=== PATIENT | male | born 1975 | race Caucasian/White ===

== ENCOUNTER 2018-07-22 08:09 | Inpatient (IN) | payer MEDICAID ==
[~2018-07-22] VITALS: Ht 170.2 cm; Wt 72.1 kg
[2018-07-22 08:43] VITALS: BP 128/76
[2018-07-22] MEDS ORDERED: ZOLPIDEM TARTRATE 10 MG TABLET PO PRN (09:00)
[2018-07-22] MEDS ORDERED: HALOPERIDOL 5 MG TABLET PO PRN (09:00)
[2018-07-22 11:28] VITALS: BP 119/67
[2018-07-22 16:00] VITALS: BP 106/66
[2018-07-23 00:51] VITALS: BP 111/67
[2018-07-23 08:34] LABS: BASOPHILS % (AUTO) 0.7 % (0.0-2.0); EOSINOPHILS % (AUTO) 5.3 % (1.0-6.0); HEMATOCRIT 36.6 % (41-53); HEMOGLOBIN 11.6 g/dL (13.5-17.5); LYMPHOCYTES # (AUTO) 3.4 K/uL (1.0-4.8); LYMPHOCYTES % (AUTO) 26.5 % (22.0-44.0); MEAN CORPUSCULAR HEMOGLOBIN 24.3 pg (26.0-34.0); MEAN CORPUSCULAR HGB CONC 31.7 G/dL (31.0-37.0); MEAN CORPUSCULAR VOLUME 77 fL (80-100); MONOCYTES # (AUTO) 0.9 K/uL (0.1-1.0); NEUTROPHILS # (AUTO) 7.7 K/uL (1.8-7.7); NEUTROPHILS % (AUTO) 60.5 % (40.0-70.0); PLATELET COUNT (AUTO) 389 K/uL (150-450); RED BLOOD CELL COUNT(AUTO) 4.77 MIL/uL (4.50-5.90); RED CELL DISTRIBUTION WIDTH 16.3 % (11.5-14.5)
[2018-07-23 08:45] LABS: HEMOGLOBIN A1C 5.7 % (4.5-6.2)
[2018-07-23 09:04] LABS: ALANINE AMINOTRANSFERASE 27 U/L (12-78); ALBUMIN 3.6 g/dL (3.4-5.0); ALKALINE PHOSPHATASE 113 U/L (46-116); ANION GAP 11 mmol/L (8-16); ASPARTATE AMINOTRANSFERASE 16 U/L (15-37); BILIRUBIN,TOTAL 0.4 mg/dL (0.1-1.0); CALCIUM, TOTAL 9.4 mg/dL (8.8-10.5); CARBON DIOXIDE 26 mmol/L (22-29); CHLORIDE 103 mmol/L (98-107); CHOL/HDL RATIO 4.2 (4.2-7.3); CHOLESTEROL 205 mg/dL (131-200); GLOMERULAR FILTR. RATE CALC > 60 mL/min (>60); GLUCOSE,RANDOM 79 mg/dL (70-110); HDL CHOLESTEROL 49 mg/dL (40-60); LDL CHOL (CALC.) 139 mg/dL (0-130); POTASSIUM 4.5 mmol/L (3.5-5.1); SODIUM SERUM 140 mmol/L (136-145); TRIGLYCERIDES 83 mg/dL (15-150); UREA NITROGEN, BLOOD 21 mg/dL (7-18)
[2018-07-23 09:39] VITALS: BP 108/63
[2018-07-23 16:00] VITALS: BP 118/66
[2018-07-23] MEDS: LORazepam 2 MG TABLET PO PRN (17:05)
[2018-07-23] MEDS: ZIPRASIDONE HCL 20 MG CAPSULE PO SCH (17:05)
[2018-07-24 01:02] VITALS: BP 116/65
[2018-07-24] MEDS: ZIPRASIDONE HCL 20 MG CAPSULE PO SCH ×2 (06:45→17:00)
[2018-07-24 08:25] VITALS: BP 123/61
[2018-07-24 16:29] VITALS: BP 138/63
[2018-07-25 02:04] VITALS: BP 128/78
[2018-07-25] MEDS: ZIPRASIDONE HCL 20 MG CAPSULE PO SCH ×2 (06:03→17:00)
[2018-07-25 08:39] VITALS: BP 124/60
[2018-07-25 16:07] VITALS: BP 126/70
[2018-07-26 06:14] VITALS: BP 122/78
[2018-07-26] MEDS: ZIPRASIDONE HCL 20 MG CAPSULE PO SCH ×2 (06:29→16:20)
[2018-07-26 08:14] VITALS: BP 124/65
[2018-07-26 16:17] VITALS: BP 115/62
[2018-07-27 05:52] VITALS: BP 110/72
[2018-07-27] MEDS: ZIPRASIDONE HCL 20 MG CAPSULE PO SCH ×2 (06:22→16:29)
[2018-07-27 08:12] VITALS: BP 107/60
[2018-07-27 16:10] VITALS: BP 113/67
[2018-07-27] MEDS: FERROUS SULFATE 325 MG EC TABLET PO SCH (16:29)
[2018-07-28 06:13] VITALS: BP 117/78
[2018-07-28] MEDS: FERROUS SULFATE 325 MG EC TABLET PO SCH ×3 (06:48→16:49)
[2018-07-28] MEDS: ZIPRASIDONE HCL 20 MG CAPSULE PO SCH ×2 (06:49→16:50)
[2018-07-28 09:06] VITALS: BP 104/56
[2018-07-28] MEDS ORDERED: MAG HYDROX/AL HYDROX/SIMETH ES 30 ML SUSPENSION UDCUP PO PRN (11:30)
[2018-07-28] MEDS ORDERED: PETROLATUM,WHITE 28 GM JELLY TP PRN (11:30)
[2018-07-28] MEDS ORDERED: CloNIDine HCL 0.1 MG TABLET PO PRN (11:30)
[2018-07-28] MEDS ORDERED: ONDANSETRON HCL 4 MG TABLET PO PRN (11:30)
[2018-07-28] MEDS ORDERED: ALBUTEROL SULFATE HFA 90 MCG/PUFF 8 GM INHALER IH PRN (11:30)
[2018-07-28] MEDS ORDERED: NICOTINE 14 MG/24 HOUR PATCH TD PRN (11:30)
[2018-07-28] MEDS ORDERED: GuaiFENesin/D-METHORPHAN [SUGAR-FREE] 200-20MG/10 ML SYRUP UDCUP PO PRN (11:30)
[2018-07-28] MEDS ORDERED: IBUPROFEN 400 MG TABLET PO PRN (11:30)
[2018-07-28] MEDS ORDERED: LOPERAMIDE HCL 2 MG CAPSULE PO PRN (11:30)
[2018-07-28] MEDS ORDERED: DOCUSATE SODIUM 100 MG CAPSULE PO PRN (11:30)
[2018-07-28] MEDS ORDERED: MAGNESIUM HYDROXIDE SUSPENSION 30 ML UDCUP PO PRN (11:30)
[2018-07-28 16:01] VITALS: BP 126/85
[2018-07-29 02:42] VITALS: BP 118/69
[2018-07-29] MEDS: ZIPRASIDONE HCL 20 MG CAPSULE PO SCH ×2 (06:14→06:17)
[2018-07-29] MEDS: FERROUS SULFATE 325 MG EC TABLET PO SCH ×3 (06:14→17:00)
[2018-07-29 08:15] VITALS: BP 108/63
[2018-07-29] MEDS ORDERED: HALOPERIDOL LACTATE 5 MG/ML VIAL IM PRN (14:45)
[2018-07-30 00:36] VITALS: BP 116/64
[2018-07-30] MEDS: ZIPRASIDONE HCL 20 MG CAPSULE PO SCH (06:38)
[2018-07-30] MEDS: FERROUS SULFATE 325 MG EC TABLET PO SCH ×3 (06:38→16:47)
[2018-07-30 08:21] VITALS: BP 114/60
[2018-07-30 08:26] LABS: BASOPHILS % (AUTO) 0.6 % (0.0-2.0); HEMOGLOBIN 12.3 g/dL (13.5-17.5); LYMPHOCYTES # (AUTO) 2.3 K/uL (1.0-4.8); LYMPHOCYTES % (AUTO) 24.4 % (22.0-44.0); MEAN CORPUSCULAR HEMOGLOBIN 24.2 pg (26.0-34.0); MEAN CORPUSCULAR HGB CONC 31.5 G/dL (31.0-37.0); MEAN CORPUSCULAR VOLUME 77 fL (80-100); MONOCYTES # (AUTO) 0.6 K/uL (0.1-1.0); MONOCYTES % (AUTO) 6.9 % (2.0-9.0); NEUTROPHILS # (AUTO) 5.9 K/uL (1.8-7.7); NEUTROPHILS % (AUTO) 63.1 % (40.0-70.0); PLATELET COUNT (AUTO) 345 K/uL (150-450); RED BLOOD CELL COUNT(AUTO) 5.09 MIL/uL (4.50-5.90)
[2018-07-30 16:26] VITALS: BP 110/62
[2018-07-30] MEDS: ZIPRASIDONE HCL 40 MG CAPSULE PO SCH (16:47)
[2018-07-31 05:29] VITALS: BP 118/78
[2018-07-31] MEDS: ZIPRASIDONE HCL 40 MG CAPSULE PO SCH ×2 (06:32→17:01)
[2018-07-31] MEDS: FERROUS SULFATE 325 MG EC TABLET PO SCH ×3 (06:32→17:01)
[2018-07-31 08:15] VITALS: BP 131/60
[2018-07-31 16:19] VITALS: BP 107/63
[2018-08-01 05:24] VITALS: BP 125/75
[2018-08-01] MEDS: ZIPRASIDONE HCL 40 MG CAPSULE PO SCH ×2 (06:07→17:21)
[2018-08-01] MEDS: FERROUS SULFATE 325 MG EC TABLET PO SCH ×3 (06:08→17:21)
[2018-08-01 09:30] VITALS: BP 114/81
[2018-08-01 16:00] VITALS: BP 102/62
[2018-08-02 05:16] VITALS: BP 115/78
[2018-08-02] MEDS: FERROUS SULFATE 325 MG EC TABLET PO SCH ×3 (06:30→16:53)
[2018-08-02] MEDS: ZIPRASIDONE HCL 40 MG CAPSULE PO SCH ×2 (06:30→16:53)
[2018-08-02 08:33] VITALS: BP 100/60
[2018-08-02 16:59] VITALS: BP 115/64
[2018-08-03 04:25] VITALS: BP 114/73
[2018-08-03] MEDS: FERROUS SULFATE 325 MG EC TABLET PO SCH ×3 (06:21→16:05)
[2018-08-03] MEDS: ZIPRASIDONE HCL 40 MG CAPSULE PO SCH ×2 (06:21→16:05)
[2018-08-03 08:36] VITALS: BP 104/64
[2018-08-03 16:00] VITALS: BP 119/64
[2018-08-04 01:48] VITALS: BP 118/75
[2018-08-04] MEDS: ZIPRASIDONE HCL 40 MG CAPSULE PO SCH ×2 (06:13→16:53)
[2018-08-04] MEDS: FERROUS SULFATE 325 MG EC TABLET PO SCH ×3 (06:13→16:53)
[2018-08-04 08:00] VITALS: BP 120/72
[2018-08-04 16:00] VITALS: BP 119/78
[2018-08-05 05:40] VITALS: BP 116/61
[2018-08-05] MEDS: FERROUS SULFATE 325 MG EC TABLET PO SCH ×3 (06:15→16:16)
[2018-08-05] MEDS: ZIPRASIDONE HCL 40 MG CAPSULE PO SCH ×2 (06:15→16:16)
[2018-08-05 08:23] VITALS: BP 127/68
[2018-08-05 17:14] VITALS: BP 130/50
[2018-08-06 00:13] VITALS: BP 101/67
[2018-08-06] MEDS: ZIPRASIDONE HCL 40 MG CAPSULE PO SCH ×2 (06:44→16:02)
[2018-08-06] MEDS: FERROUS SULFATE 325 MG EC TABLET PO SCH ×3 (06:44→16:02)
[2018-08-06 08:20] VITALS: BP 117/68
[2018-08-06 16:36] VITALS: BP 139/70
[2018-08-07 05:57] VITALS: BP 128/76
[2018-08-07] MEDS: ZIPRASIDONE HCL 40 MG CAPSULE PO SCH (06:42)
[2018-08-07] MEDS: FERROUS SULFATE 325 MG EC TABLET PO SCH ×3 (06:43→16:48)
[2018-08-07 08:23] VITALS: BP 132/61
[2018-08-07 16:00] VITALS: BP 121/70
[2018-08-07] MEDS: ZIPRASIDONE HCL 60 MG CAPSULE PO SCH (16:48)
[2018-08-08 05:34] VITALS: BP 119/60
[2018-08-08] MEDS: FERROUS SULFATE 325 MG EC TABLET PO SCH ×3 (06:31→17:12)
[2018-08-08] MEDS: ZIPRASIDONE HCL 60 MG CAPSULE PO SCH ×2 (06:35→17:12)
[2018-08-08 08:23] VITALS: BP 106/68
[2018-08-08 16:36] VITALS: BP 111/65
[2018-08-09 04:48] VITALS: BP 114/67
[2018-08-09] MEDS: ZIPRASIDONE HCL 60 MG CAPSULE PO SCH ×2 (06:38→16:36)
[2018-08-09] MEDS: FERROUS SULFATE 325 MG EC TABLET PO SCH ×3 (06:38→16:36)
[2018-08-09 09:02] VITALS: BP 116/69
[2018-08-09 17:43] VITALS: BP 135/81
[2018-08-10 01:44] VITALS: BP 110/63
[2018-08-10] MEDS: ZIPRASIDONE HCL 60 MG CAPSULE PO SCH ×2 (06:39→17:32)
[2018-08-10] MEDS: FERROUS SULFATE 325 MG EC TABLET PO SCH ×3 (06:39→17:32)
[2018-08-10 08:20] VITALS: BP 133/74
[2018-08-10 16:35] VITALS: BP 131/74
[2018-08-10] MEDS: LORazepam 2 MG TABLET PO PRN (17:32)
[2018-08-11 05:55] VITALS: BP 125/78
[2018-08-11] MEDS: ZIPRASIDONE HCL 60 MG CAPSULE PO SCH ×2 (06:28→16:57)
[2018-08-11] MEDS: FERROUS SULFATE 325 MG EC TABLET PO SCH ×3 (06:28→16:57)
[2018-08-11 08:50] VITALS: BP 119/62
[2018-08-11 16:00] VITALS: BP 112/75
[2018-08-12] MEDS: FERROUS SULFATE 325 MG EC TABLET PO SCH ×3 (06:28→16:46)
[2018-08-12] MEDS: ZIPRASIDONE HCL 60 MG CAPSULE PO SCH ×2 (06:29→16:46)
[2018-08-12 07:00] VITALS: BP 116/72
[2018-08-12 09:30] VITALS: BP 128/64
[2018-08-12 10:38] VITALS: BP 123/59
[2018-08-12] MEDS: ACETAMINOPHEN 325 MG TABLET PO PRN (10:43)
[2018-08-12 11:45] VITALS: BP 120/60
[2018-08-12 16:00] VITALS: BP 129/71
[2018-08-13 05:13] VITALS: BP 118/77
[2018-08-13] MEDS: ZIPRASIDONE HCL 60 MG CAPSULE PO SCH (06:50)
[2018-08-13] MEDS: FERROUS SULFATE 325 MG EC TABLET PO SCH ×3 (06:50→16:23)
[2018-08-13 08:22] VITALS: BP 113/70
[2018-08-13 16:16] VITALS: BP 130/72
[2018-08-13] MEDS: ZIPRASIDONE HCL 80 MG CAPSULE PO SCH (16:23)
[2018-08-14 06:26] VITALS: BP 130/72
[2018-08-14] MEDS: FERROUS SULFATE 325 MG EC TABLET PO SCH ×3 (07:00→16:45)
[2018-08-14] MEDS: ZIPRASIDONE HCL 80 MG CAPSULE PO SCH ×2 (07:04→16:45)
[2018-08-14 08:48] VITALS: BP 104/70
[2018-08-14 16:02] VITALS: BP 123/76
[2018-08-15 01:56] VITALS: BP 120/69
[2018-08-15] MEDS: FERROUS SULFATE 325 MG EC TABLET PO SCH ×3 (06:07→16:23)
[2018-08-15] MEDS: ZIPRASIDONE HCL 80 MG CAPSULE PO SCH ×2 (06:07→16:23)
[2018-08-15 08:02] VITALS: BP 134/89
[2018-08-15 16:03] VITALS: BP 122/78
[2018-08-16 06:13] VITALS: BP 115/76
[2018-08-16] MEDS: FERROUS SULFATE 325 MG EC TABLET PO SCH ×3 (06:26→17:07)
[2018-08-16] MEDS: ZIPRASIDONE HCL 80 MG CAPSULE PO SCH ×2 (06:26→17:07)
[2018-08-16 09:13] VITALS: BP 132/70
[2018-08-16 16:34] VITALS: BP 124/73
[2018-08-17 01:28] VITALS: BP 122/72
[2018-08-17] MEDS: ZIPRASIDONE HCL 80 MG CAPSULE PO SCH ×2 (06:37→16:39)
[2018-08-17] MEDS: FERROUS SULFATE 325 MG EC TABLET PO SCH ×3 (06:37→16:39)
[2018-08-17 08:05] VITALS: BP 125/63
[2018-08-17 20:12] VITALS: BP 140/75
[2018-08-18 04:26] VITALS: BP 132/76
[2018-08-18] MEDS: ZIPRASIDONE HCL 80 MG CAPSULE PO SCH (07:18)
[2018-08-18] MEDS: FERROUS SULFATE 325 MG EC TABLET PO SCH ×2 (07:18→12:55)
[2018-08-18 08:19] VITALS: BP 116/65
[2018-08-18] MEDS: ACETAMINOPHEN 325 MG TABLET PO PRN (10:25)
[2018-08-18] MEDS ORDERED: ZIPR80CA2 PO (10:28)
[2018-08-18 10:34] VITALS: BP 103/71
[2018-08-18] MEDS ORDERED: FLUTICASONE PROPIONATE 50 MCG/SPRAY 16 GM NASAL SPRAY NASAL SCH (11:00)
[2018-08-18 11:25] VITALS: BP 111/64
[2018-08-18] MEDS ORDERED: FLUT16H NASAL (15:08)
[2018-08-18] MEDS ORDERED: FERR-89 PO (15:08)
== END 2018-08-18 15:20 | disposition home or self-care (01) | DRG 750 ==
LOC: B3A 09:50
DX: F20.0 Paranoid schizophrenia (principal); D64.9 Anemia, unspecified; D72.829 Elevated white blood cell count, unspecified; E78.5 Hyperlipidemia, unspecified; F10.10 Alcohol abuse, uncomplicated; Z79.899 Other long term (current) drug therapy; Z28.21 Immunization not carried out because of patient refusal
CPT/HCPCS: 83036; 84439; 84443; J1630

== ENCOUNTER 2020-08-02 17:19 | Inpatient (IN) | payer MEDICAID, OTHER ==
[~2020-08-02] VITALS: Ht 170.2 cm; Wt 85.3 kg
[~2020-08-02 17:19] MED LIST: FERR-89 PO; FLUT16H NASAL; ZIPR80CA2 PO
[2020-08-02 18:45] LABS: AMPHET/METH SCREEN,URINE NEGATIVE (NEGATIVE); BARBITURATE SCREEN, URINE NEGATIVE (NEGATIVE); BENZODIAZEPINES SCREEN,URINE NEGATIVE (NEGATIVE); CANNABINOID SCREEN,URINE NEGATIVE (NEGATIVE); COCAINE SCREEN,URINE NEGATIVE (NEGATIVE); METHADONE SCREEN, URINE NEGATIVE (NEGATIVE); OPIATE SCREEN,URINE NEGATIVE (NEGATIVE); PHENCYCLIDINE SCREEN,URINE NEGATIVE (NEGATIVE)
[2020-08-02 19:45] LABS: BASOPHILS % (AUTO) 0.9 % (0.0-2.0); EOSINOPHILS % (AUTO) 2.6 % (1.0-6.0); HEMATOCRIT 45.1 % (41-53); HEMOGLOBIN 14.3 g/dL (13.5-17.5); LYMPHOCYTES % (AUTO) 21.7 % (22.0-44.0); MEAN CORPUSCULAR HEMOGLOBIN 25.6 pg (26.0-34.0); MEAN CORPUSCULAR HGB CONC 31.6 G/dL (31.0-37.0); MEAN CORPUSCULAR VOLUME 81 fL (80-100); MONOCYTES # (AUTO) 0.9 K/uL (0.1-1.0); MONOCYTES % (AUTO) 6.3 % (2.0-9.0); NEUTROPHILS # (AUTO) 9.4 K/uL (1.8-7.7); NEUTROPHILS % (AUTO) 68.5 % (40.0-70.0); PLATELET COUNT (AUTO) 285 K/uL (150-450); RED BLOOD CELL COUNT(AUTO) 5.58 MIL/uL (4.50-5.90)
[2020-08-02] MEDS ORDERED: QUEtiapine FUMARATE 100 MG TABLET PO PRN (19:45)
[2020-08-02] MEDS ORDERED: LORazepam 2 MG TABLET PO PRN (19:45)
[2020-08-02] MEDS ORDERED: ZOLPIDEM TARTRATE 10 MG TABLET PO PRN (19:45)
[2020-08-02] MEDS ORDERED: LORazepam 2 MG TABLET PO ONE ×2 (20:00)
[2020-08-02] MEDS ORDERED: HALOPERIDOL 5 MG TABLET PO ONE ×2 (20:00)
[2020-08-02 20:01] LABS: ALANINE AMINOTRANSFERASE 25 U/L (12-78); ALKALINE PHOSPHATASE 131 U/L (46-116); ANION GAP 16 mmol/L (8-16); ASPARTATE AMINOTRANSFERASE 16 U/L (15-37); BILIRUBIN,TOTAL 0.3 mg/dL (0.1-1.0); CALCIUM, TOTAL 8.9 mg/dL (8.8-10.5); CARBON DIOXIDE 20 mmol/L (22-29); CHLORIDE 102 mmol/L (98-107); CREATININE 0.82 mg/dL (0.60-1.30); GLOMERULAR FILTR. RATE CALC > 60 mL/min (>60); GLUCOSE,RANDOM 102 mg/dL (70-110); PLATELET MORPHOLOGY COMMENT GIANT PLTS PRESENT; POTASSIUM 3.9 mmol/L (3.5-5.1); SODIUM SERUM 138 mmol/L (136-145); TOTAL PROTEIN, SERUM 7.9 g/dL (6.4-8.2); UREA NITROGEN, BLOOD 13 mg/dL (7-18)
[2020-08-02 20:14] LABS: COVID AG,FIA SOURCE NASOPHARYNGEAL
[2020-08-02 20:33] LABS: APPEARANCE,URINE CLEAR (CLEAR); BILIRUBIN,URINE NEGATIVE (NEGATIVE); GLUCOSE, URINE (UA) NEGATIVE (NEGATIVE); KETONES,URINE NEGATIVE (NEGATIVE); LEUKOCYTE ESTERASE ,URINE NEGATIVE (NEGATIVE); NITRATE,URINE NEGATIVE (NEGATIVE); OCCULT BLOOD,URINE NEGATIVE (NEGATIVE); PROTEIN,URINE NEGATIVE (NEGATIVE); UROBILINOGEN,URINE 0.2 mg/dL (<=1.0)
[2020-08-02 22:32] VITALS: BP 125/69
[2020-08-03 07:00] LABS: CHOL/HDL RATIO 4.9 (4.2-7.3)
[2020-08-03] MEDS ORDERED: ONDANSETRON HCL 4 MG TABLET PO PRN (07:30)
[2020-08-03] MEDS ORDERED: ALBUTEROL SULFATE HFA 90 MCG/PUFF 8 GM INHALER IH PRN (07:30)
[2020-08-03] MEDS ORDERED: CloNIDine HCL 0.1 MG TABLET PO PRN (07:30)
[2020-08-03] MEDS ORDERED: DOCUSATE SODIUM 100 MG CAPSULE PO PRN (07:30)
[2020-08-03] MEDS ORDERED: LOPERAMIDE HCL 2 MG CAPSULE PO PRN (07:30)
[2020-08-03] MEDS ORDERED: MAGNESIUM HYDROXIDE SUSPENSION 30 ML UDCUP PO PRN (07:30)
[2020-08-03] MEDS ORDERED: IBUPROFEN 400 MG TABLET PO PRN (07:30)
[2020-08-03] MEDS ORDERED: PETROLATUM,WHITE 28 GM JELLY TP PRN (07:30)
[2020-08-03] MEDS: FERROUS SULFATE 325 MG EC TABLET PO SCH ×3 (08:00→17:37)
[2020-08-03] MEDS: ACETAMINOPHEN 325 MG TABLET PO PRN (08:01)
[2020-08-03] MEDS: FLUTICASONE PROPIONATE 50 MCG/SPRAY 16 GM NASAL SPRAY NASAL SCH ×2 (08:03→16:30)
[2020-08-03 08:30] VITALS: BP 108/76
[2020-08-03] MEDS: GuaiFENesin/D-METHORPHAN [SUGAR-FREE] 200-20MG/10 ML SYRUP UDCUP PO PRN (09:07)
[2020-08-03 16:54] VITALS: BP 117/69
[2020-08-03] MEDS: ZIPRASIDONE HCL 40 MG CAPSULE PO SCH (17:37)
[2020-08-04] MEDS: ZIPRASIDONE HCL 40 MG CAPSULE PO SCH ×2 (06:35→16:45)
[2020-08-04] MEDS: FERROUS SULFATE 325 MG EC TABLET PO SCH ×3 (06:35→16:45)
[2020-08-04] MEDS: FLUTICASONE PROPIONATE 50 MCG/SPRAY 16 GM NASAL SPRAY NASAL SCH ×2 (08:45→16:45)
[2020-08-04 16:00] VITALS: BP 117/65
[2020-08-05] MEDS: FERROUS SULFATE 325 MG EC TABLET PO SCH ×3 (06:47→16:30)
[2020-08-05] MEDS: ZIPRASIDONE HCL 40 MG CAPSULE PO SCH ×2 (06:48→16:30)
[2020-08-05 08:00] VITALS: BP 131/60
[2020-08-05] MEDS: FLUTICASONE PROPIONATE 50 MCG/SPRAY 16 GM NASAL SPRAY NASAL SCH ×2 (09:24→16:29)
[2020-08-05 16:00] VITALS: BP 136/74
[2020-08-05] MEDS: NICOTINE 14 MG/24 HOUR PATCH TD PRN (19:27)
[2020-08-06] MEDS: ZIPRASIDONE HCL 40 MG CAPSULE PO SCH (06:39)
[2020-08-06] MEDS: FERROUS SULFATE 325 MG EC TABLET PO SCH ×3 (06:39→16:29)
[2020-08-06 06:43] LABS: BASOPHILS % (AUTO) 0.7 % (0.0-2.0); EOSINOPHILS % (AUTO) 4.6 % (1.0-6.0); HEMATOCRIT 43.2 % (41-53); LYMPHOCYTES # (AUTO) 2.5 K/uL (1.0-4.8); LYMPHOCYTES % (AUTO) 25.5 % (22.0-44.0); MEAN CORPUSCULAR HEMOGLOBIN 25.9 pg (26.0-34.0); MEAN CORPUSCULAR HGB CONC 32.5 G/dL (31.0-37.0); MEAN CORPUSCULAR VOLUME 80 fL (80-100); MONOCYTES # (AUTO) 0.8 K/uL (0.1-1.0); MONOCYTES % (AUTO) 7.8 % (2.0-9.0); NEUTROPHILS % (AUTO) 61.4 % (40.0-70.0); PLATELET COUNT (AUTO) 251 K/uL (150-450); RED BLOOD CELL COUNT(AUTO) 5.41 MIL/uL (4.50-5.90); RED CELL DISTRIBUTION WIDTH 17.7 % (11.5-14.5)
[2020-08-06 07:32] LABS: PLATELET MORPHOLOGY COMMENT GIANT PLTS PRESENT
[2020-08-06] MEDS: FLUTICASONE PROPIONATE 50 MCG/SPRAY 16 GM NASAL SPRAY NASAL SCH ×2 (08:45→16:29)
[2020-08-06] MEDS: GuaiFENesin/D-METHORPHAN [SUGAR-FREE] 200-20MG/10 ML SYRUP UDCUP PO PRN (13:58)
[2020-08-06 16:05] VITALS: BP 110/87
[2020-08-06] MEDS: ZIPRASIDONE HCL 60 MG CAPSULE PO SCH (16:28)
[2020-08-07 00:56] VITALS: BP 115/70
[2020-08-07] MEDS: FERROUS SULFATE 325 MG EC TABLET PO SCH ×3 (06:35→17:15)
[2020-08-07] MEDS: ZIPRASIDONE HCL 60 MG CAPSULE PO SCH ×2 (06:35→17:15)
[2020-08-07] MEDS: FLUTICASONE PROPIONATE 50 MCG/SPRAY 16 GM NASAL SPRAY NASAL SCH ×2 (08:37→17:15)
[2020-08-07 11:03] VITALS: BP 137/77
[2020-08-07 16:12] VITALS: BP 105/79
[2020-08-08 03:13] VITALS: BP 112/65
[2020-08-08] MEDS: ZIPRASIDONE HCL 60 MG CAPSULE PO SCH ×2 (06:45→16:23)
[2020-08-08] MEDS: FERROUS SULFATE 325 MG EC TABLET PO SCH ×3 (06:45→16:23)
[2020-08-08 08:25] VITALS: BP 106/63
[2020-08-08] MEDS: FLUTICASONE PROPIONATE 50 MCG/SPRAY 16 GM NASAL SPRAY NASAL SCH ×2 (08:31→16:23)
[2020-08-08 08:50] VITALS: BP 106/63
[2020-08-08 16:00] VITALS: BP 135/94
[2020-08-09] MEDS: ZIPRASIDONE HCL 60 MG CAPSULE PO SCH ×2 (06:44→17:27)
[2020-08-09] MEDS: FERROUS SULFATE 325 MG EC TABLET PO SCH ×3 (06:44→17:26)
[2020-08-09 09:24] VITALS: BP 120/44
[2020-08-09] MEDS: FLUTICASONE PROPIONATE 50 MCG/SPRAY 16 GM NASAL SPRAY NASAL SCH ×2 (10:10→17:26)
[2020-08-09 16:00] VITALS: BP 132/68
[2020-08-10 01:56] VITALS: BP 126/81
[2020-08-10] MEDS: FERROUS SULFATE 325 MG EC TABLET PO SCH ×3 (06:49→16:36)
[2020-08-10] MEDS: ZIPRASIDONE HCL 60 MG CAPSULE PO SCH (06:49)
[2020-08-10 09:27] VITALS: BP 120/79
[2020-08-10] MEDS: FLUTICASONE PROPIONATE 50 MCG/SPRAY 16 GM NASAL SPRAY NASAL SCH ×2 (10:00→16:36)
[2020-08-10 16:00] VITALS: BP 128/80
[2020-08-10] MEDS: ZIPRASIDONE HCL 80 MG CAPSULE PO SCH (16:37)
[2020-08-11 00:23] VITALS: BP 118/73
[2020-08-11] MEDS: ZIPRASIDONE HCL 80 MG CAPSULE PO SCH ×2 (06:43→16:41)
[2020-08-11] MEDS: FERROUS SULFATE 325 MG EC TABLET PO SCH ×3 (06:43→16:41)
[2020-08-11 08:00] VITALS: BP 125/66
[2020-08-11] MEDS: FLUTICASONE PROPIONATE 50 MCG/SPRAY 16 GM NASAL SPRAY NASAL SCH ×2 (08:29→16:41)
[2020-08-11 17:43] VITALS: BP 144/87
[2020-08-12] MEDS: FERROUS SULFATE 325 MG EC TABLET PO SCH ×3 (09:03→16:44)
[2020-08-12] MEDS: ZIPRASIDONE HCL 80 MG CAPSULE PO SCH ×2 (09:04→17:30)
[2020-08-12] MEDS: FLUTICASONE PROPIONATE 50 MCG/SPRAY 16 GM NASAL SPRAY NASAL SCH ×2 (09:04→16:44)
[2020-08-12 09:07] VITALS: BP 126/66
[2020-08-12 16:00] VITALS: BP 150/93
[2020-08-12] MEDS: NICOTINE 14 MG/24 HOUR PATCH TD PRN (18:01)
[2020-08-13 03:25] VITALS: BP 127/91
[2020-08-13] MEDS: MAG HYDROX/AL HYDROX/SIMETH ES 30 ML SUSPENSION UDCUP PO PRN (05:16)
[2020-08-13] MEDS: ZIPRASIDONE HCL 80 MG CAPSULE PO SCH ×2 (06:58→16:09)
[2020-08-13] MEDS: FERROUS SULFATE 325 MG EC TABLET PO SCH ×3 (06:59→16:09)
[2020-08-13 08:43] VITALS: BP 133/62
[2020-08-13] MEDS: FLUTICASONE PROPIONATE 50 MCG/SPRAY 16 GM NASAL SPRAY NASAL SCH ×2 (08:45→16:09)
[2020-08-13] MEDS: NICOTINE 14 MG/24 HOUR PATCH TD PRN (12:52)
[2020-08-13] MEDS: DIVALPROEX SODIUM 500 MG DR TABLET PO SCH ×2 (12:52→20:19)
[2020-08-13 16:57] VITALS: BP 138/91
[2020-08-14 00:41] VITALS: BP 118/80
[2020-08-14] MEDS: ZIPRASIDONE HCL 80 MG CAPSULE PO SCH ×2 (06:48→16:35)
[2020-08-14] MEDS: FERROUS SULFATE 325 MG EC TABLET PO SCH ×3 (06:48→16:35)
[2020-08-14 08:15] VITALS: BP 154/62
[2020-08-14] MEDS: DIVALPROEX SODIUM 500 MG DR TABLET PO SCH ×2 (11:49→16:35)
[2020-08-14] MEDS: FLUTICASONE PROPIONATE 50 MCG/SPRAY 16 GM NASAL SPRAY NASAL SCH ×2 (11:50→16:35)
[2020-08-14 16:00] VITALS: BP 134/86
[2020-08-15 04:13] VITALS: BP 123/68
[2020-08-15] MEDS: ZIPRASIDONE HCL 80 MG CAPSULE PO SCH ×2 (06:44→16:37)
[2020-08-15] MEDS: FERROUS SULFATE 325 MG EC TABLET PO SCH ×3 (06:44→16:38)
[2020-08-15 08:00] VITALS: BP 144/80
[2020-08-15] MEDS: DIVALPROEX SODIUM 500 MG DR TABLET PO SCH ×2 (08:28→16:37)
[2020-08-15] MEDS: FLUTICASONE PROPIONATE 50 MCG/SPRAY 16 GM NASAL SPRAY NASAL SCH ×2 (08:28→16:38)
[2020-08-15 17:30] VITALS: BP 118/60
[2020-08-15] MEDS: NICOTINE 14 MG/24 HOUR PATCH TD PRN (20:24)
[2020-08-16] MEDS: FERROUS SULFATE 325 MG EC TABLET PO SCH ×3 (06:44→17:25)
[2020-08-16] MEDS: ZIPRASIDONE HCL 80 MG CAPSULE PO SCH ×2 (06:44→17:25)
[2020-08-16] MEDS: DIVALPROEX SODIUM 500 MG DR TABLET PO SCH ×2 (08:26→17:25)
[2020-08-16] MEDS: FLUTICASONE PROPIONATE 50 MCG/SPRAY 16 GM NASAL SPRAY NASAL SCH ×2 (09:00→17:25)
[2020-08-16 09:34] VITALS: BP 116/63
[2020-08-17 03:52] VITALS: BP 121/64
[2020-08-17] MEDS: FERROUS SULFATE 325 MG EC TABLET PO SCH ×3 (06:47→17:06)
[2020-08-17] MEDS: ZIPRASIDONE HCL 80 MG CAPSULE PO SCH ×2 (06:48→17:06)
[2020-08-17] MEDS: FLUTICASONE PROPIONATE 50 MCG/SPRAY 16 GM NASAL SPRAY NASAL SCH ×2 (09:01→17:06)
[2020-08-17] MEDS: DIVALPROEX SODIUM 500 MG DR TABLET PO SCH ×2 (09:04→17:06)
[2020-08-17 09:50] VITALS: BP 119/58
[2020-08-17 16:06] VITALS: BP 116/73
[2020-08-18 00:30] VITALS: BP 120/76
[2020-08-18] MEDS: FERROUS SULFATE 325 MG EC TABLET PO SCH ×3 (06:55→17:22)
[2020-08-18] MEDS: ZIPRASIDONE HCL 80 MG CAPSULE PO SCH ×2 (06:55→17:22)
[2020-08-18] MEDS: DIVALPROEX SODIUM 500 MG DR TABLET PO SCH ×2 (08:52→17:22)
[2020-08-18] MEDS: FLUTICASONE PROPIONATE 50 MCG/SPRAY 16 GM NASAL SPRAY NASAL SCH ×2 (08:52→17:22)
[2020-08-18 09:08] VITALS: BP 158/89
[2020-08-18 16:00] VITALS: BP 143/83
[2020-08-19 03:42] VITALS: BP 123/75
[2020-08-19] MEDS: ZIPRASIDONE HCL 80 MG CAPSULE PO SCH ×2 (06:47→16:14)
[2020-08-19] MEDS: FERROUS SULFATE 325 MG EC TABLET PO SCH ×3 (06:47→16:16)
[2020-08-19] MEDS: MAG HYDROX/AL HYDROX/SIMETH ES 30 ML SUSPENSION UDCUP PO PRN (06:50)
[2020-08-19] MEDS: DIVALPROEX SODIUM 500 MG DR TABLET PO SCH ×2 (08:34→16:14)
[2020-08-19] MEDS: FLUTICASONE PROPIONATE 50 MCG/SPRAY 16 GM NASAL SPRAY NASAL SCH ×2 (08:58→16:14)
[2020-08-19 12:31] VITALS: BP 138/78
[2020-08-19 16:30] VITALS: BP 151/91
[2020-08-20 03:42] VITALS: BP 126/70
[2020-08-20 04:04] VITALS: BP 126/70
[2020-08-20] MEDS: FERROUS SULFATE 325 MG EC TABLET PO SCH ×3 (07:01→16:32)
[2020-08-20] MEDS: ZIPRASIDONE HCL 80 MG CAPSULE PO SCH ×2 (07:01→16:32)
[2020-08-20] MEDS: FLUTICASONE PROPIONATE 50 MCG/SPRAY 16 GM NASAL SPRAY NASAL SCH ×2 (08:09→16:33)
[2020-08-20] MEDS: DIVALPROEX SODIUM 500 MG DR TABLET PO SCH ×2 (08:09→16:32)
[2020-08-20 08:25] VITALS: BP 121/74
[2020-08-20 16:29] VITALS: BP 126/79
[2020-08-21 01:22] VITALS: BP 110/76
[2020-08-21] MEDS: MAG HYDROX/AL HYDROX/SIMETH ES 30 ML SUSPENSION UDCUP PO PRN (02:50)
[2020-08-21] MEDS: FERROUS SULFATE 325 MG EC TABLET PO SCH ×3 (06:48→16:36)
[2020-08-21] MEDS: ZIPRASIDONE HCL 80 MG CAPSULE PO SCH ×2 (06:48→16:36)
[2020-08-21] MEDS: FLUTICASONE PROPIONATE 50 MCG/SPRAY 16 GM NASAL SPRAY NASAL SCH ×2 (08:34→16:36)
[2020-08-21] MEDS: DIVALPROEX SODIUM 500 MG DR TABLET PO SCH ×2 (08:34→16:36)
[2020-08-21 09:01] VITALS: BP 129/79
[2020-08-21 16:21] VITALS: BP 121/76
[2020-08-22 05:10] VITALS: BP 119/80
[2020-08-22] MEDS: FERROUS SULFATE 325 MG EC TABLET PO SCH ×3 (06:48→16:32)
[2020-08-22] MEDS: ZIPRASIDONE HCL 80 MG CAPSULE PO SCH ×2 (06:49→16:10)
[2020-08-22] MEDS: FLUTICASONE PROPIONATE 50 MCG/SPRAY 16 GM NASAL SPRAY NASAL SCH ×2 (08:24→16:11)
[2020-08-22] MEDS: DIVALPROEX SODIUM 500 MG DR TABLET PO SCH ×2 (08:24→16:10)
[2020-08-22 10:34] VITALS: BP 135/78
[2020-08-22 17:08] VITALS: BP 111/66
[2020-08-23 02:06] VITALS: BP 111/79
[2020-08-23] MEDS: MAG HYDROX/AL HYDROX/SIMETH ES 30 ML SUSPENSION UDCUP PO PRN ×2 (02:49→23:57)
[2020-08-23] MEDS: ZIPRASIDONE HCL 80 MG CAPSULE PO SCH ×2 (06:45→16:11)
[2020-08-23] MEDS: FERROUS SULFATE 325 MG EC TABLET PO SCH ×3 (06:45→16:11)
[2020-08-23] MEDS: FLUTICASONE PROPIONATE 50 MCG/SPRAY 16 GM NASAL SPRAY NASAL SCH ×2 (08:28→17:00)
[2020-08-23] MEDS: DIVALPROEX SODIUM 500 MG DR TABLET PO SCH ×2 (08:28→16:11)
[2020-08-23 08:40] VITALS: BP 118/73
[2020-08-23 16:27] VITALS: BP 122/81
[2020-08-23 23:55] VITALS: BP 128/73
[2020-08-23] MEDS: ACETAMINOPHEN 325 MG TABLET PO PRN (23:57)
[2020-08-24] MEDS: FERROUS SULFATE 325 MG EC TABLET PO SCH ×3 (06:55→16:44)
[2020-08-24] MEDS: ZIPRASIDONE HCL 80 MG CAPSULE PO SCH ×2 (06:56→16:44)
[2020-08-24 08:34] VITALS: BP 147/80
[2020-08-24] MEDS: FLUTICASONE PROPIONATE 50 MCG/SPRAY 16 GM NASAL SPRAY NASAL SCH ×2 (10:23→16:44)
[2020-08-24] MEDS: DIVALPROEX SODIUM 500 MG DR TABLET PO SCH ×2 (10:23→16:44)
[2020-08-24 16:00] VITALS: BP 130/75
[2020-08-25 03:42] VITALS: BP 133/78
[2020-08-25] MEDS: FERROUS SULFATE 325 MG EC TABLET PO SCH ×3 (06:46→17:17)
[2020-08-25] MEDS: ZIPRASIDONE HCL 80 MG CAPSULE PO SCH ×2 (06:46→17:17)
[2020-08-25] MEDS: FLUTICASONE PROPIONATE 50 MCG/SPRAY 16 GM NASAL SPRAY NASAL SCH ×2 (08:31→17:17)
[2020-08-25] MEDS: DIVALPROEX SODIUM 500 MG DR TABLET PO SCH ×2 (08:31→17:17)
[2020-08-25 09:27] VITALS: BP 122/72
[2020-08-25] MEDS: ACETAMINOPHEN 325 MG TABLET PO PRN (12:48)
[2020-08-25 16:04] VITALS: BP 147/86
[2020-08-26] MEDS: ZIPRASIDONE HCL 80 MG CAPSULE PO SCH ×2 (06:52→16:45)
[2020-08-26] MEDS: FERROUS SULFATE 325 MG EC TABLET PO SCH ×3 (06:52→16:45)
[2020-08-26] MEDS: FLUTICASONE PROPIONATE 50 MCG/SPRAY 16 GM NASAL SPRAY NASAL SCH ×2 (08:04→16:45)
[2020-08-26] MEDS: DIVALPROEX SODIUM 500 MG DR TABLET PO SCH ×2 (08:04→16:45)
[2020-08-26 08:35] VITALS: BP 109/74
[2020-08-26] MEDS: MAG HYDROX/AL HYDROX/SIMETH ES 30 ML SUSPENSION UDCUP PO PRN (17:14)
[2020-08-27 05:32] VITALS: BP 120/70
[2020-08-27] MEDS: FERROUS SULFATE 325 MG EC TABLET PO SCH ×3 (06:23→16:14)
[2020-08-27] MEDS: ZIPRASIDONE HCL 80 MG CAPSULE PO SCH ×2 (06:23→17:11)
[2020-08-27] MEDS: FLUTICASONE PROPIONATE 50 MCG/SPRAY 16 GM NASAL SPRAY NASAL SCH ×2 (08:08→16:14)
[2020-08-27] MEDS: DIVALPROEX SODIUM 500 MG DR TABLET PO SCH ×2 (08:08→16:14)
[2020-08-27 08:30] VITALS: BP 128/60
[2020-08-27 16:00] VITALS: BP 128/72
[2020-08-28] MEDS: FERROUS SULFATE 325 MG EC TABLET PO SCH ×3 (07:10→16:21)
[2020-08-28] MEDS: ZIPRASIDONE HCL 80 MG CAPSULE PO SCH ×2 (07:45→16:20)
[2020-08-28 08:15] VITALS: BP 123/67
[2020-08-28] MEDS: FLUTICASONE PROPIONATE 50 MCG/SPRAY 16 GM NASAL SPRAY NASAL SCH ×2 (08:23→16:20)
[2020-08-28] MEDS: DIVALPROEX SODIUM 500 MG DR TABLET PO SCH ×2 (08:23→16:21)
[2020-08-28 16:37] VITALS: BP 110/57
[2020-08-29] MEDS: MAG HYDROX/AL HYDROX/SIMETH ES 30 ML SUSPENSION UDCUP PO PRN (00:28)
[2020-08-29 00:33] VITALS: BP 127/77
[2020-08-29] MEDS: ZIPRASIDONE HCL 80 MG CAPSULE PO SCH ×2 (06:54→16:06)
[2020-08-29] MEDS: FERROUS SULFATE 325 MG EC TABLET PO SCH ×3 (06:54→16:06)
[2020-08-29 07:50] VITALS: BP 129/71
[2020-08-29] MEDS: ACETAMINOPHEN 325 MG TABLET PO PRN (07:53)
[2020-08-29] MEDS: DIVALPROEX SODIUM 500 MG DR TABLET PO SCH ×2 (08:02→16:06)
[2020-08-29] MEDS: FLUTICASONE PROPIONATE 50 MCG/SPRAY 16 GM NASAL SPRAY NASAL SCH ×2 (08:02→16:06)
[2020-08-29 08:53] VITALS: BP 139/88
[2020-08-29 16:00] VITALS: BP 121/70
[2020-08-30 04:01] VITALS: BP 133/72
[2020-08-30] MEDS: ACETAMINOPHEN 325 MG TABLET PO PRN (04:23)
[2020-08-30] MEDS: ZIPRASIDONE HCL 80 MG CAPSULE PO SCH ×2 (07:00→16:29)
[2020-08-30] MEDS: FERROUS SULFATE 325 MG EC TABLET PO SCH ×3 (07:00→16:29)
[2020-08-30] MEDS: FLUTICASONE PROPIONATE 50 MCG/SPRAY 16 GM NASAL SPRAY NASAL SCH ×2 (08:07→16:29)
[2020-08-30] MEDS: DIVALPROEX SODIUM 500 MG DR TABLET PO SCH ×2 (08:08→16:29)
[2020-08-30 08:30] VITALS: BP 125/68
[2020-08-30] MEDS: NICOTINE 14 MG/24 HOUR PATCH TD PRN (10:04)
[2020-08-30 16:00] VITALS: BP 145/86
[2020-08-31] MEDS: FERROUS SULFATE 325 MG EC TABLET PO SCH (06:38)
[2020-08-31] MEDS: ZIPRASIDONE HCL 80 MG CAPSULE PO SCH (06:38)
[2020-08-31] MEDS: DIVALPROEX SODIUM 500 MG DR TABLET PO SCH (08:02)
[2020-08-31] MEDS: FLUTICASONE PROPIONATE 50 MCG/SPRAY 16 GM NASAL SPRAY NASAL SCH (08:02)
[2020-08-31 08:15] VITALS: BP 142/88
[2020-08-31] MEDS ORDERED: DIVA-112 PO (09:04)
[2020-08-31] MEDS ORDERED: ZIPR80CA2 PO (09:10)
== END 2020-08-31 11:05 | disposition home or self-care (01) | DRG 750 ==
LOC: EMS 17:19 → 3EI 19:42
DX: F20.0 Paranoid schizophrenia (principal); D64.9 Anemia, unspecified; E78.5 Hyperlipidemia, unspecified; J30.9 Allergic rhinitis, unspecified; D72.829 Elevated white blood cell count, unspecified; Z20.822 Contact with and (suspected) exposure to COVID-19; Z79.899 Other long term (current) drug therapy
CPT/HCPCS: 80053; 80061; 80164; 81003; 85025; 87426; 99285; G0480